=== PATIENT | male | born 1955 | race Caucasian/White ===

== ENCOUNTER 2023-07-06 13:33 | Outpatient (CLI) | payer MEDICARE, OTHER, SELFPAY ==
--- NOTE | 2023-07-06 13:46 | ECHO_ITS ---
Patient Info Name: Ru Storey Age: 67 years : 1955 Gender: Male Ht: 72 in Wt: 202 lbs BSA: 2.17 m2 HR: 75 bpm BP: 122 / 68 mmHg Technical Quality: Good Exam Date: 07/06/2023 2:01 PM Exam Location: Echo Lab Patient Status: Outpatient Admit Date: 07/06/2023 Staff Ordering Physician: Elton Greenwood MD [employer]: Attending Provider: Elton Greenwood MD Referring Physician: Timo WAN; Exam Type: CA echo doppler color flow Study Info Indications R60.0 - Localized edema Complete two-dimensional, color flow and Doppler transthoracic echocardiogram is performed. Summary 1. Complete two-dimensional, color flow and Doppler transthoracic echocardiogram is performed. 2. Left ventricular chamber dimension is normal. 3. Left ventricular systolic function is normal, estimated at 60-65%. 4. The left ventricular diastolic function is grade I diastolic dysfunction. 5. E/e' 8 is minimally elevated. 6. Left atrial chamber dimension is mildly enlarged. 7. There is mild aortic valve sclerosis. 8. There is trace aortic valve regurgitation. 9. The mitral valve has mildly calcified annulus. 10. There is trace mitral valve regurgitation. 11. There is trace tricuspid valve regurgitation. 12. No pulmonary hypertension, estimated pulmonary arterial systolic pressure is 35 mmHg. Left Ventricle E/e' 8 is minimally elevated. Left ventricular chamber dimension is normal. Left ventricular systolic function is normal, estimated at 60-65%. The left ventricular diastolic function is grade I diastolic dysfunction. Right Ventricle Right ventricular systolic function is normal and with normal TAPSE 2.4 cm. Right ventricular chamber dimension is normal. Left Atria Left atrial chamber dimension is mildly enlarged. Right Atria Right atrial chamber dimension is normal. Aortic Valve The aortic valve is trileaflet. There is mild aortic valve sclerosis. There is no aortic valve stenosis. There is trace aortic valve regurgitation. Pulmonic Valve There is no pulmonic regurgitation. Mitral Valve The mitral valve has mildly calcified annulus. There is no mitral valve stenosis. There is trace mitral valve regurgitation. Tricuspid Valve There is trace tricuspid valve regurgitation. No pulmonary hypertension, estimated pulmonary arterial systolic pressure is 35 mmHg. Pericardium/Pleural There is no pericardial effusion. Inferior Vena Cava Normal inferior vena cava with >50% collapse upon inspiration consistent with normal right atrial pressure, 5 mmHg. Aorta The aortic root size at the sinus of Valsalva is normal. Left Ventricular Outflow Tract Name Value Normal LVOT 2D LVOT Diameter 2.3 cm LVOT Doppler LVOT Peak Gradient 4 mmHg LVOT Mean Gradient 2 mmHg LVOT VTI 27 cm LVOT VTI/AV VTI Ratio 0.7 LVOT Stroke Volume 113 ml LVOT CO 6.9 l/min LVOT CI 3.2 l/min/m2 Pulmonic Valve Name V
== END 2023-07-06 13:34 | disposition home or self-care (01) ==
LOC: ANHCARD 13:35
PROVIDERS: PCP Family Medicine; Visit Provider Family Medicine
DX: R60.0 Localized edema (principal)
CPT/HCPCS: 93306

== ENCOUNTER 2023-10-07 08:00 | Outpatient (RCR) | payer MEDICARE, OTHER, SELFPAY ==
--- NOTE | 2023-07-24 17:13 | PTOPEVAL1 ---
Assessment and note entered by Thelma Pompa, PT Evaluation Information Assessment Status Evaluation Diagnosis unspec. injury of right shoulder/upper arm, pain in right shoulder Therapy conditions pain in right knee abnormalities of gait stiffness right knee weakness (rotator cuff) right shoulder impingement Onset ~1 year for the knee, 2 for shoulder Subjective Information Reports right arm and face would go numb multiple times a day. 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 Also started on seizure medication and has decreased this. With seizure medication will only get the facial numbness rarely but also states doesn't take his medication as well as he should. Very right hand dominant due to left hand after accident being less than functional. Shoulder has pain daily, describes as uncomfortable. Sleeping is the worst, can't lay on it, can't put behind head. Has been using the arm more and is feeling better than previously. Had bilat knees left one was done first 02/2022 and 6 months later had the right done but this one but never got back to normal. Sometimes the right knee swells a lot. States if does all day will wear a compression sock which helps. Difficulty sleeping due to pain in knee. States doesn't do his exercises and didn't do his therapy as well on the right knee. 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 Pt right knee demo's decreased ROM in flexion especially, abnormal gait, and guarding of RLE. Pt right shoulder show impingement symptoms likely related to poor glenohumeral kinematics and weakness of rotator cuff. Pt will benefit from therapy to address deficits and improve function with less pain. Plan of Care Interventions Electrical Stimulation,Gait Training,Hot Pack/Cold Pack,Manual Therapy,Neuro Re-education, Therapeutic Activities,Therapeutic Exercise PT Services Indicated Yes Treatment Frequency and 1-2x weekly x 10 visits Duration These treatments will address the objective and functional deficits as defined above. The patient will be advanced safely and appropriately in order for the patient to progress towar
--- NOTE | 2023-07-24 17:14 | OPREHPOC ---
Outpatient Therapy Plan of Care This is a Multidisciplinary Plan of Care that may contain components documented by all disciplines (PT, OT, and ST.) PT Problem 1 PT Problem #1 Knowledge Deficit PT Goal 1 Goal Pt will be independent in HEP Pt will verbalize understanding of diagnosis and prognosis Target Visit 5 PT Problem 2 PT Problem #2 Impaired Range of Motion PT Goal 1 Goal Pt will demo right knee flexion of 105 or greater Target Visit 10 PT Problem 3 PT Problem #3 Pain PT Goal 1 Goal Pt will report greatest pain level at 5/10 or less to improve ADLs and activities Target Visit 6 PT Goal 2 Goal Pt will report greatest pain level at 3/10 or less to improve ADLs and activities Target Visit 10 PT Problem 4 PT Problem #4 Impaired Strength PT Goal 1 Goal Pt will demo strength of RUE 4/5 in all tested planes Target Visit 10
--- NOTE | 2023-08-28 14:59 | PCPTNOTE ---
Therapy department called & cancelled scheduled appointment this date due to staffing shortage. Will continue POC as able.
--- NOTE | 2023-09-04 17:23 | PTOPPROG ---
Assessment and note entered by Thelma Pompa, PT Assessment Status Progress Diagnosis unspec. injury of right shoulder/upper arm, pain in right shoulder Therapy conditions pain in right knee abnormalities of gait stiffness right knee weakness right shoulder impingement Onset ~1 year for the knee, 2 for shoulder Subjective Information L[place] go to sleep lots of instances, driving in the road, tearing down RV shed, etc has done this more in the last month than previously. Goes down into hand front and back whole hand . knee doing things with knee causes increased discomfort, a tight feeling in posterior knee Pt is trying to do steps better with the knee. States he is walking much better, hadn't realized how he had been walking previously. Perceived improvement in knee is 50%. Pt states he is not being consistent with his exercises. States was due to being on vacation and unable to do his exercises. Assessment PT Clinical Summary Pt has attended 6 visits in 6 weeks with a large gap between eval and second visit due to his vacation. He reports he is not consistent in his home exercises also stating due to vacation. He continues to have difficulty with walking and stairs but reports overall improvement of 50% in his knee, as well as reports pain no greater than 2/10 and lower LEFS scores. Shoulder pt cont to have pain to 3/10 and reports tingling all the way down and all the way around his hand and arms. Also demo's weakness in right shoulder and cont to demo multiple special tests suggestive of anatomical injury pathology. Pt has been educated on importance of HEP between sessions, consistency of this, and improvements. Pt will cont to benefit from physical therapy to improve pain and discomfort, and improve deficits to allow improved independent functioning. Plan of Care Interventions Electrical Stimulation,Gait Training,Hot Pack/Cold Pack,Manual Therapy,Neuro Re-education, Therapeutic Activities,Therapeutic Exercise PT Services Indicated Yes Treatment Frequency and 1-2x weekly x 10 visits Duration These treatments will address the objective and functional deficits as defined abo
--- NOTE | 2023-11-03 13:52 | PCPTNOTE ---
Admitting Provider: Attending Provider: Elton Greenwood MD Patient:Ru Storey Date of :1955 Patient has not returned for any further treatments since 10/07/2023, therefore he will be discharged at this time due to nonattendance. 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 He was also noted to be non-compliant in HEP. The goals have not been met. Thank you for referring this patient to [facility]. Please review, sign, date and return this discharge summary [facility]. I have been updated about the patient's current status and I agree with discharge from the above service at this time. Referring Physician Date
== END 2023-10-22 23:59 | disposition home or self-care (01) ==
LOC: ANHHIPT 08:00
PROVIDERS: PCP Family Medicine; Visit Provider Family Medicine
DX: M25.511 Pain in right shoulder (principal); S49.91XD Unspecified injury of right shoulder and upper arm, subsequent encounter
CPT/HCPCS: 97014; 97035; 97110; 97112; 97116; 97140; 97163; 97530; 97750; G0283